=== PATIENT | female | born 1990 | race Caucasian/White ===

== ENCOUNTER 2017-12-27 19:15 | Emergency (ER) | payer OTHER ==
[~2017-12-27] VITALS: Ht 154.9 cm; Wt 84.4 kg
[~2017-12-27 19:15] MED LIST: AMITRIPTYLINE H50 MG PO; BENTYL10 MG PO; CELEXA20 MG PO; DEPAKOTE PO; ELAVIL50 MG; FIORICET,ESG1 TABLET PO; FLEXERIL10 MG PO; KEFLEX500 MG PO; KLONOPIN0.5 M1 PO; LORTAB 5-325 M1 EACH PO; MELATONIN10 M1 PO; NAPROSYN500 MG PO; NOHOMEMEDS; NORCO 5/3251 TABLET PO; PAXIL20 MG PO; RISPERDAL1 MG PO; TOPAMAX50 MG PO; TYLENOL WITH C1 EACH PO; ULTRAM50 MG PO; VICODIN ES 71 TABLET; ZANTAC150 MG PO; ZOFRAN4 MG PO; [UNRECOGNIZED DRUG - REMARK]
[2017-12-27 19:37] VITALS: BP 129/74
== END 2017-12-27 22:04 | disposition left against medical advice (07) ==
LOC: EME 19:15
DX: R51 Headache (principal); Z87.820 Personal history of traumatic brain injury; G43.909 Migraine, unspecified, not intractable, without status migrainosus; K21.9 Gastro-esophageal reflux disease without esophagitis; Z87.891 Personal history of nicotine dependence; Z88.6 Allergy status to analgesic agent; Z88.5 Allergy status to narcotic agent
CPT/HCPCS: 70450; 99281; 99285; J0780; J1200; J1885; J7120; S0028